=== PATIENT | female | born 1990 | race Two or more races ===

== ENCOUNTER 2022-09-23 12:17 | Emergency (ER) | payer OTHER ==
[~2022-09-23] VITALS: Ht 160 cm; Wt 87.5 kg
== END 2022-09-23 18:23 | disposition home or self-care (01) ==
LOC: ER 12:17
DX: O20.9 Hemorrhage in early pregnancy, unspecified (principal); Z3A.01 Less than 8 weeks gestation of pregnancy; Z88.6 Allergy status to analgesic agent; Z88.0 Allergy status to penicillin

== ENCOUNTER 2022-10-26 12:06 | Outpatient (CLI) | payer OTHER | END 2022-10-26 13:03 | disposition home or self-care (01) | LOC: PRENATAL 12:06 | PROVIDERS: ATTEND Obstetrics & Gynecology Maternal & Fetal Medicine | DX: O36.80X0 Pregnancy with inconclusive fetal viability, not applicable or unspecified (principal); O34.219 Maternal care for unspecified type scar from previous cesarean delivery; Z36 Encounter for antenatal screening of mother; Z3A.11 11 weeks gestation of pregnancy ==

== ENCOUNTER 2022-12-27 13:28 | Outpatient (CLI) | payer OTHER | END 2022-12-27 15:07 | disposition home or self-care (01) | LOC: PRENATAL 13:28 | PROVIDERS: ATTEND Obstetrics & Gynecology Maternal & Fetal Medicine | DX: O35.9XX0 Maternal care for (suspected) fetal abnormality and damage, unspecified, not applicable or unspecified (principal); O35.3XX0 Maternal care for (suspected) damage to fetus from viral disease in mother, not applicable or unspecified; Z3A.20 20 weeks gestation of pregnancy ==

== ENCOUNTER 2023-02-21 13:28 | Outpatient (CLI) | payer OTHER | END 2023-02-21 15:00 | disposition home or self-care (01) | LOC: PRENATAL 13:28 | PROVIDERS: ATTEND Obstetrics & Gynecology Maternal & Fetal Medicine | DX: O26.849 Uterine size-date discrepancy, unspecified trimester (principal); O34.219 Maternal care for unspecified type scar from previous cesarean delivery; O24.419 Gestational diabetes mellitus in pregnancy, unspecified control; O43.219 Placenta accreta, unspecified trimester; Z3A.28 28 weeks gestation of pregnancy ==

== ENCOUNTER 2023-03-21 13:10 | Outpatient (CLI) | payer OTHER | END 2023-03-21 15:17 | disposition home or self-care (01) | LOC: PRENATAL 13:10 | PROVIDERS: ATTEND Obstetrics & Gynecology Maternal & Fetal Medicine | DX: O26.849 Uterine size-date discrepancy, unspecified trimester (principal); O34.219 Maternal care for unspecified type scar from previous cesarean delivery; O24.419 Gestational diabetes mellitus in pregnancy, unspecified control; O43.219 Placenta accreta, unspecified trimester; Z3A.32 32 weeks gestation of pregnancy ==

== ENCOUNTER 2023-04-19 09:42 | Outpatient (CLI) | payer OTHER | END 2023-04-19 11:07 | disposition home or self-care (01) | LOC: PRENATAL 09:42 | PROVIDERS: ATTEND Obstetrics & Gynecology Maternal & Fetal Medicine | DX: O26.849 Uterine size-date discrepancy, unspecified trimester (principal); O34.219 Maternal care for unspecified type scar from previous cesarean delivery; O24.419 Gestational diabetes mellitus in pregnancy, unspecified control; O36.8199 Decreased fetal movements, unspecified trimester, other fetus; Z3A.36 36 weeks gestation of pregnancy ==

== ENCOUNTER 2023-04-21 11:30 | Inpatient (IN) | payer OTHER ==
[~2023-04-21] VITALS: Ht 160 cm; Wt 2.3 kg
[2023-04-24] MEDS ORDERED: PRENATE ELITE1 EAC2 PO (08:00)
== END 2023-04-27 12:18 | disposition home or self-care (01) | DRG 785 ==
LOC: O/R 04-24 07:38 → OB/GYN 04-24 07:38
PROVIDERS: Obstetrics & Gynecology; ADMIT Obstetrics & Gynecology; ATTEND Obstetrics & Gynecology
PROC: 0UB70ZZ Excision of Bilateral Fallopian Tubes, Open Approach (ICD-10-PCS; 2023-04-24)
PROC: 4A1HXCZ Monitoring of Products of Conception, Cardiac Rate, External Approach (ICD-10-PCS; 2023-04-24)
PROC: 10D00Z1 Extraction of Products of Conception, Low, Open Approach (ICD-10-PCS; principal; 2023-04-24 13:00)
DX: O43.213 Placenta accreta, third trimester (principal); Z3A.37 37 weeks gestation of pregnancy; Z37.0 Single live birth; Z30.2 Encounter for sterilization; Z20.822 Contact with and (suspected) exposure to COVID-19